=== PATIENT | male | born 1935 | race Caucasian/White ===

== ENCOUNTER 2017-03-17 07:17 | Day surgery (SDC) | payer MEDICARE ==
[~2017-03-17 07:17] MED LIST: Buffered Lidocaine 0.9% SYRIN* 5 ML/SYR SYRINGE INTRADERM ONE
[2017-03-17] MEDS ORDERED: Buffered Lidocaine 0.9% SYRIN* 5 ML/SYR SYRINGE ONE (07:45)
[2017-03-17] MEDS ORDERED: Bupivacaine 0.25% SDV* 30 ML ONE (08:31)
[2017-03-17] MEDS ORDERED: HYDROcodone/ACETAMIN 5-325 MG* 1 TAB PO PRN (08:32)
[2017-03-17] MEDS ORDERED: Acetaminophen TAB* 325 MG PO PRN (08:32)
[2017-03-17] MEDS ORDERED: fentaNYL* 50 MCG/ML 2 ML VIAL (100 MCG VIAL) IV PRN (08:32)
[2017-03-17] MEDS ORDERED: Ketorolac INJ* 30 MG/ML 1 ML VIAL IV PRN (08:32)
[2017-03-17] MEDS ORDERED: Lidocaine 2% PF * 5 ML VIAL ONE (08:44)
[2017-03-17] MEDS ORDERED: Propofol* 10 MG/ML 20 ML BTL IV PUSH ONE (08:44)
[2017-03-17 09:48] VITALS: BP 135/85
--- NOTE | 2017-03-17 13:28 | OP ---
DATE OF OPERATION: 03/17/17 - [facility] DATE OF : 33 SURGEON: Andrea Zurita MD HEAD OF MATHEMATICS: EL Nieto. ANESTHESIOLOGIST: Dr. Rosalba Corrales ANESTHESIA: Local MAC. PRE-OP DIAGNOSIS: Right carpal syndrome. POST-OP DIAGNOSIS: Right carpal syndrome. OPERATIVE PROCEDURE: Right open carpal tunnel release. INDICATIONS: Jabier has advanced right carpal tunnel syndrome with moderate amount of atrophy and significant nighttime symptoms. He failed nonoperative treatment. ESTIMATED BLOOD LOSS: 10 mL. COMPLICATIONS: None. FINDINGS: As expected. DESCRIPTION OF PROCEDURE: Jabier was seen in the preoperative holding area and the correct site, side, and the procedure were identified. We came back to the operating room where he got some anesthesia then I infiltrated the operative area with 0.25% plain Marcaine. The arm was then prepped and draped in the usual fashion and a formal time-out was performed. The arm was exsanguinated with the Esmarch and the tourniquet inflated to 250 mmHg and made a 2 to 3 cm longitudinal incision in standard location for an open carpal tunnel release. Dissection was carried down through the subcutaneous tissue and palmar fascia to expose the transverse carpal ligament. The ligament was released just off the radial aspect of the hook of the hamate. Once I had the distal release completed I then released the subcutaneous tissue proximally and retracted it volarly and ulnarly with a Ty retractor. I used a tenotomy scissors to complete the remainder of the release of the proximal transverse carpal tunnel and distal antebrachial fascia to the level of several centimeters proximal to the wrist flexion crease. I then checked decompression proximally and distally. Everything looked good. I went ahead and irrigated out the wound. Skin was closed with 4-0 nylon suture. Wound was dressed with Xeroform, 4x4, sterile Webril, and an bianca bandage. The tourniquet was then deflated. The hand pinked up immediately. He was then taken to the recovery room in stable condition. [id number]/[facility] #: [id number] MTDD
== END 2017-03-17 09:58 | disposition home or self-care (01) ==
LOC: OREAST 07:17
PROVIDERS: ATTEND Orthopaedic Surgery Hand Surgery
DX: G56.01 Carpal tunnel syndrome, right upper limb (principal); I10 Essential (primary) hypertension; I25.10 Atherosclerotic heart disease of native coronary artery without angina pectoris; I25.2 Old myocardial infarction; E78.5 Hyperlipidemia, unspecified; Z79.82 Long term (current) use of aspirin; Z72.0 Tobacco use
CPT/HCPCS: J2704